=== PATIENT | female | born 1945 | race Caucasian/White ===

== ENCOUNTER → 2016-11-02 | Outpatient (CLI) | payer MEDICARE ==
[2016-11-02 10:35] LABS: Basophils % (A) 1 %; CH 32.1; CHCM 33.6; Eosinophils % (A) 0 %; HDW 2.77; HGB 14.6 gm/dL (11.4-16.0); Luc # (Auto) 0.17; Luc % (Auto) 3; Lymphocytes # (A) 1.4 k/uL (1.0-4.8); Lymphocytes % (A) 27 %; MCH 31.9 pg (25.0-35.0); MCHC 33.2 g/dL (31.0-37.0); Mean Platelet Volume 7.3; Monocytes # (A) 0.6 k/uL (0-1.0); Monocytes % (A) 11 %; Neutrophils # (A) 3.1 k/uL (1.3-7.7); Neutrophils % (A) 59 %; RBC 4.59 m/uL (3.80-5.40); RDW 13.3 % (11.5-15.5); WBC 5.3 k/uL (3.8-10.6); WBC (Perox) 5.51
[2016-11-02 10:47] LABS: ALT 30 U/L (9-52); AST 23 U/L (14-36); Alkaline Phosphatase 78 U/L (38-126); Anion Gap 10 mmol/L; Blood Urea Nitrogen 17 mg/dL (7-17); Calcium 9.6 mg/dL (8.4-10.2); Carbon Dioxide 31 mmol/L (22-30); Chloride 101 mmol/L (98-107); Cholesterol 164 mg/dL (<200); Glucose 141 mg/dL (74-99); HDL Cholesterol 46 mg/dL (40-60); Non-African American GFR(MDRD) >60 (>60 ml/min/1.73 sqM); Potassium 4.7 mmol/L (3.5-5.1); Sodium 142 mmol/L (137-145); Total Bilirubin 0.6 mg/dL (0.2-1.3); Triglycerides 168 mg/dL (<150)
== END ==
LOC: LABWHC1 10:02
PROVIDERS: ATTEND Internal Medicine Cardiovascular Disease
DX: I10 Essential (primary) hypertension (principal); R06.02 Shortness of breath; E78.5 Hyperlipidemia, unspecified
CPT/HCPCS: 36415; 80053; 80061; 83880; 85025

== ENCOUNTER → 2024-03-06 | Outpatient (CLI) | payer MEDICARE ==
[~2024-03-06] MED LIST: REGADENOSON 0.4 MG/5 ML SYRINGE IV ONE
--- NOTE | 2024-03-21 09:36 | CA ---
Lexiscan Nuclear Stress Test Report Name: Mis Conner Exam Date: 03/06/2024 10:32 Exam Location: [facility] Ht (in): 69 Wt (lb): 190 BSA: 2.02 Ordering Phys: Kendy Eduardo MD Referring Phys: KENDY EDUARDO Technologist: Pavan Garcia Age: 78 Gender: F : 1945 Procedure CPT: Indications: R06.09 Dyspnea ICD-10 Codes: Patient History: Medications: METOPROLOL Meds past 24 hrs: Pretest Chest Pain: STRESS TEST Lexiscan Protocol Exercise Duration (min:sec): 02:[address] Depressions (mm): Angina Score: Almonte Score: Resting HR (bpm): 73 Peak HR (bpm): 87 Resting BP (mmHg): 150 / 87 Peak BP (mmHg): 144 / 82 MPHR: 142 Target HR: 121 % MPHR: 61 METS: 1.0 Total Dose: Peak Dose: Atropine: Double Product: 59342 BP Response: Stress Termination: PROTOCOL COMPLETE Stress Symptoms: NO SYMPTOMS Stress Summary: ECG ANALYSIS Resting ECG: Sinus rhythm. Normal conduction. Atrial premature contraction. Nonspecific ST-T abnormality. Stress ECG: No ECG changes from baseline with Lexiscan infusion. CONCLUSIONS No ECG evidence of ischemia with Lexiscan infusion. Nuclear test results to follow. Dr. Clemente Vu MD (Electronically Signed) Final Date: 21 March 2024 09:36
--- NOTE | 2024-03-28 15:33 | NM ---
EXAMINATION TYPE: NM stress lexiscan cardiolite DATE OF EXAM: 03/20/2024 COMPARISON: NONE CLINICAL INDICATION: Female, 78 years old with history of shortness of breath, R06.09 dyspnea; TECHNIQUE: After the intravenous administration of 10.2 mCi Tc 99m Sestamibi - Cardiolite resting SP ECT images acquired 30 minutes post injection. The patient received 0.4mg Lexiscan, 24 mCi Tc 99m Sestamibi - Stress images obtained 30 minutes post injection FINDINGS: Review of stress and rest SPECT images demonstrates decreased perfusion along the inferior wall parti cularly on rest images suggesting attenuation artifact. No discrete reversibility is seen. Gated anal ysis shows normal wall motion with an estimated left ventricular ejection fraction of 58 %. TID is c alculated at 1.02, within normal limits. IMPRESSION: Findings suggest some attenuation artifact along the inferior wall. No scintigraphic evid ence for reversible ischemia.
== END | disposition home or self-care (01) ==
LOC: RADNMMAIN 07:58
PROVIDERS: ATTEND Family Medicine
DX: R06.09 Other forms of dyspnea (principal)
CPT/HCPCS: 93017; 78452; C8929; A9500; Q9957; J2785; 93306